=== PATIENT | male | born 1955 ===

== ENCOUNTER 2019-07-19 08:06 | Emergency (ER) | payer SELFPAY ==
[~2019-07-19] VITALS: Ht 172.7 cm; Wt 92.2 kg
--- NOTE | 2019-07-19 10:22 | NUR ---
RECRUITING COORDINATOR: PT TO ROOM FROM [facility]
[2019-07-19 11:21] LABS: BASOPHILS % (AUTO) 1 % (0-1); EOSINOPHILS # (AUTO) 0.45 x10^3/uL (0-0.4); EOSINOPHILS % (AUTO) 5 % (1-7); LYMPHOCYTES # (AUTO) 1.38 x10^3/uL (1-3.4); LYMPHOCYTES % (AUTO) 16 % (22-44); MD NO; MEAN CORPUSCULAR HEMOGLOBIN 28.4 pg (27.5-34.5); MEAN CORPUSCULAR HGB CONC 33.1 g/dL (33.2-36.2); MEAN CORPUSCULAR VOLUME 85.8 fL (81-97); MEAN PLATELET VOLUME 8.8 fL (7.4-10.4); MONOCYTES # (AUTO) 0.72 x10^3/uL (0.2-0.8); MONOCYTES % (AUTO) 8 % (2-9); NEUTROPHILS # (AUTO) 6.22 x10^3/uL (1.8-6.8); NEUTROPHILS % (AUTO) 70 % (42-75); PLATELET COUNT 180 x10^3/uL (130-400); RED CELL DISTRIBUTION WIDTH 14.7 % (9.4-14.8)
[2019-07-19 11:24] VITALS: BP 158/105
[2019-07-19 11:34] LABS: ALBUMIN 3.7 g/dL (3.4-5.0); ANION GAP 10 mmol/L (5-15); CALCIUM 8.8 mg/dL (8.5-10.1); CHLORIDE 108 mmol/L (98-107)
[2019-07-19 11:39] LABS: CREATININE 1.15 mg/dL (0.7-1.3); TROPONIN I < 0.015 ng/mL (0.000-0.045)
--- NOTE | 2019-07-19 12:18 | NUR ---
PT HAS CO OF WEAKNESS, COUGH, CHILLS, BODY ACHES STARTING FEW DAYS AGO. PT CO OF CHEST PAIN. BEATER BOSS APPLIED. VS STABLE. GIVEN BLANKETS.
--- NOTE | 2019-07-19 13:15 | NUR ---
Patient/Caregiver given discharge instructions and they have confirmed that they understand the instructions. Patient ambulatory with steady gait.
== END 2019-07-19 13:16 | disposition home or self-care (01) ==
LOC: ED 13:00
DX: R07.89 Other chest pain (principal); J06.9 Acute upper respiratory infection, unspecified; I10 Essential (primary) hypertension
CPT/HCPCS: 36415; 71045; 80048; 82040; 84484; 85025; 93005; 99284